=== PATIENT | female | born 1995 | race Two or more races ===

== ENCOUNTER 2024-05-03 13:00 | Outpatient (RCR) | payer MEDICAID, SELFPAY ==
--- NOTE | 2024-04-12 14:28 | PT.ODAYNRPT ---
PT Outpatient Daily Note OP Daily Note Outpatient Physical Therapy Treatment Date: 04/12/24 Visit Reasons: Low back pain Subjective: The LBP she feels now is different from before sx. It's more superficial. Objective: See F/S for therex Assessment: Improved core activation and stability with therex Plan: Continue per POC Length of Time (minutes) of Treatment: 30 Minutes Procedure Charges Therapeutic Exercise 30 minutes: Yes
--- NOTE | 2024-05-03 14:36 | PT.ODAYNRPT ---
PT Outpatient Daily Note OP Daily Note Outpatient Physical Therapy Treatment Date: 05/03/24 Visit Reasons: Low back pain Subjective: Pt reports back is sore and achy, feels cold weather is making pain worse. Objective: Please see flow sheet for ther ex list. Assessment: Pt tolerated interventions with minimal pain. Plan: Continue with POC. Length of Time (minutes) of Treatment: 30 Minutes Procedure Charges Therapeutic Exercise 30 minutes: Yes
== END 2024-05-08 23:59 | disposition home or self-care (01) ==
LOC: CPTX 13:00
PROVIDERS: PCP Physician Assistant; Referring Provider Physician Assistant; Visit Provider Physician Assistant
DX: M54.50 Low back pain, unspecified (principal)
CPT/HCPCS: 97110

== ENCOUNTER 2024-06-01 08:30 | Outpatient (RCR) | payer MEDICAID, SELFPAY ==
--- NOTE | 2024-05-12 13:42 | PT.ODAYNRPT ---
PT Outpatient Daily Note OP Daily Note Outpatient Physical Therapy Treatment Date: 05/12/24 Visit Reasons: low back pain Subjective: pt. reports improved tolerance to ther-ex, with reduced pain to lower back Objective: see flowsheet for ther-ex Assessment: good core activation with ther-ex Plan: continue PT per POC Length of Time (minutes) of Treatment: 30 Minutes Procedure Charges Therapeutic Exercise 30 minutes: Yes
--- NOTE | 2024-05-19 14:07 | PT.ODAYNRPT ---
PT Outpatient Daily Note OP Daily Note Outpatient Physical Therapy Treatment Date: 05/19/24 Visit Reasons: low back pain Subjective: pt. reports increase in low back pain due to almost tripping over stick, wasnt able to sleep throughout the night due to pain, 01/16 pain Objective: see flowsheet for ther-ex Assessment: back pain slightly decreased with ther-ex Plan: continue PT per POC Length of Time (minutes) of Treatment: 30 Minutes Procedure Charges Therapeutic Exercise 30 minutes: Yes
--- NOTE | 2024-06-01 09:20 | PT.ODAYNRPT ---
PT Outpatient Daily Note OP Daily Note Outpatient Physical Therapy Treatment Date: 06/01/24 Visit Reasons: low back pain Subjective: Pt c/o LBP today mentioned her job was more physical yesterday and feels that is why she is in more pain today. Objective: Please see flow sheet for ther ex list. Assessment: Pt presents in clinic with c/o moderate LBP, modified interventions to accommodate pain. Plan: Continue with POC. Length of Time (minutes) of Treatment: 30 Minutes Procedure Charges Therapeutic Exercise 30 minutes: Yes
== END 2024-06-08 23:59 | disposition home or self-care (01) ==
LOC: CPTX 08:30
PROVIDERS: PCP Physician Assistant; Referring Provider Physician Assistant; Visit Provider Physician Assistant
DX: M54.50 Low back pain, unspecified (principal); M51.9 Unspecified thoracic, thoracolumbar and lumbosacral intervertebral disc disorder; Z98.1 Arthrodesis status
CPT/HCPCS: 97110

== ENCOUNTER 2024-06-28 13:00 | Outpatient (RCR) | payer MEDICAID, SELFPAY ==
--- NOTE | 2024-06-15 17:17 | PT.ODAYNRPT ---
PT Outpatient Daily Note OP Daily Note Outpatient Physical Therapy Treatment Date: 06/15/24 Visit Reasons: low back pain Subjective: Overall better, The LBP comes and goes Objective: See F/S for therex Assessment: Good core activation with therex Plan: Continue per POC Length of Time (minutes) of Treatment: 30 Minutes Procedure Charges Therapeutic Exercise 30 minutes: Yes
--- NOTE | 2024-06-28 13:39 | PT.ODAYNRPT ---
PT Outpatient Daily Note OP Daily Note Outpatient Physical Therapy Treatment Date: 06/28/24 Visit Reasons: low back pain Subjective: Pt reports back is doing ok, still gets pain with certain movements such as bending and lifting. Objective: Please see flow sheet for ther ex list. Assessment: Pt instructed on modified planks, pt performed with good technique. Plan: Pt has one visit left. Length of Time (minutes) of Treatment: 30 Minutes Procedure Charges Therapeutic Exercise 30 minutes: Yes
== END 2024-07-09 23:59 | disposition home or self-care (01) ==
LOC: CPTX 13:00
PROVIDERS: PCP Physician Assistant; Referring Provider Physician Assistant; Visit Provider Physician Assistant
DX: M54.50 Low back pain, unspecified (principal); M51.9 Unspecified thoracic, thoracolumbar and lumbosacral intervertebral disc disorder; Z98.1 Arthrodesis status
CPT/HCPCS: 97110

== ENCOUNTER 2024-07-12 13:06 | Outpatient (RCR) | payer MEDICAID, SELFPAY ==
--- NOTE | 2024-07-13 15:46 | PT.ODS1RPT ---
PT OP Progress/Discharge Note Date of Service: 07/13/24 Progress Note/DC Note Progress Note/Discharge Note: DC Note Patient Information Visit Reasons: low back pain Service Continue Service or Discharge: Discharge Discharge Date: 07/13/24 Status Subjective: Overall better and feeling stronger and working but avoids lifting and is cautious to avoid LBP. Objective: TTP: min of incision scar Lifting ed: good technique with protecting lumbar lordosis Trunk AROM: FB: 15 from floor, stops short of pain Extension: 40% of full Resisted LTR: 4/5 Assessment: Pt has attended 12/ Rx sessions with good progress to meet all therapy goals. She has improved core activation to 4/5 and demonstrates proper lifting technique to meet those goals. She has decreased TTP of lumbar paraspinals from mod to min. Plan: D/C with [facility] Procedure Charges Therapeutic Exercise 30 minutes: Yes
== END 2024-08-06 23:59 | disposition home or self-care (01) ==
LOC: CPTX 13:06
PROVIDERS: PCP Physician Assistant; Referring Provider Physician Assistant; Visit Provider Physician Assistant
DX: M54.50 Low back pain, unspecified (principal); Z98.1 Arthrodesis status; M51.9 Unspecified thoracic, thoracolumbar and lumbosacral intervertebral disc disorder
CPT/HCPCS: 97110

== ENCOUNTER → 2024-12-30 | Outpatient (CLI) | payer BC, SELFPAY ==
--- NOTE | 2024-12-30 08:09 | XR_ITS ---
Examination: Abdomen sonogram, complete Date and time of exam: December 30, 2024 0821 hours INDICATIONS: Left lower abdominal pain beginning 4 days ago. Technique: Multiple real-time grayscale transabdominal sonographic images of the abdomen have been obtained. Findings: Absent gallbladder Common bile duct 0.4 cm Pancreatic head 2.4 cm Aorta not enlarged. Liver 13.9 cm smooth contour Normal hepatopedal portal venous flow. Patent IVC Right kidney 12.0 cm cortex 1.8 cm Left kidney 12.0 cm renal cortex 2.1 cm Mild bilateral renal scar formation Spleen 10.8 cm IMPRESSION: Absent gallbladder Normal common bile duct No focal liver lesions.
== END | disposition home or self-care (01) ==
DX: R11.0 Nausea (principal); K59.00 Constipation, unspecified; R10.32 Left lower quadrant pain; Z90.49 Acquired absence of other specified parts of digestive tract
CPT/HCPCS: 76700